=== PATIENT | female | born 1940 | race Caucasian/White ===

== ENCOUNTER → 2017-04-02 | Outpatient (CLI) | payer OTHER, MEDICARE, SELFPAY ==
[~2017-04-02] MED LIST: ASA81BEC; ASPIRIN EC325 M1 PO; ATIVAN0.5 MG PO; ATIVAN2 MG PO; BACTRIM DS TAB1 EACH PO; CALCIUM 500 +1 EAC5 PO; CALCIUM 600 +1 EAC1 PO; CIPROFLOXACIN500 M1 PO; COREG25 MG PO; CRESTOR20 MG PO; CYCLOBENZAPRINE5 MG PO; CYMBALTA30 MG PO; CYMBALTA60 MG PO; ESTRACE1 MG PO; FISHOIL; FOLIC ACID 40400 MC1 PO; FUROSEMIDE 20 M20 M1 PO; HYDROCODONE-AP1 EAC6 PO; LEVOTHYROXINE0.05 MG PO; LEVOTHYROXINE0.2 M1; LIPITOR20 MG PO; LISINOPRIL20 MG PO; LOSARTAN POTASS50 MG PO; LUNESTA1 MG PO; MELOXICAM7.5 MG PO; MULTIVITAMINS; NORCO 10-325 T1 EACH PO; OSTEO BI-FLEX1 EAC1 PO; PERCOCET 5-3251 EACH PO; TRAMADOL 50 MG50 MG PO; VITAMIN B-650 M1 PO
== END ==
LOC: MRI 10:25
DX: M76.821 Posterior tibial tendinitis, right leg (principal); M65.861 Other synovitis and tenosynovitis, right lower leg

== ENCOUNTER → 2018-08-14 | Outpatient (CLI) | payer OTHER, MEDICARE | LOC: NUC 10:51 | DX: T84.84XA Pain due to internal orthopedic prosthetic devices, implants and grafts, initial encounter (principal); M25.561 Pain in right knee; M25.562 Pain in left knee; Z90.5 Acquired absence of kidney ==

== ENCOUNTER 2018-10-29 05:26 | Inpatient (IN) | payer OTHER, MEDICARE ==
[2018-10-09 13:15] LABS: HEMATOCRIT 40.6 % (37.0-47.0); HEMOGLOBIN 13.6 gm/dL (12.0-15.0); MCH 29.1 pg (26.0-34.0); MCHC 33.7 g/dL (28.0-37.0); MCV 86.6 fL (80.0-100.0); RBC 4.68 mil/uL (4.20-5.00); RDW 14.2 % (10.5-14.5); WBC 7.9 thou/uL (4.0-11.0)
[2018-10-09 13:24] LABS: ALBUMIN 4.2 g/dL (3.4-5.0); CREATININE 1.1 mg/dL (0.6-1.0); POTASSIUM 4.3 mmol/L (3.5-5.1)
[2018-10-09 13:27] LABS: PROTIME 9.8 Seconds (9.3-11.4)
[2018-10-09 13:57] LABS: URINE BILIRUBIN NEGATIVE (Negative); URINE BLOOD NEGATIVE (Negative); URINE CLARITY CLOUDY; URINE COLOR YELLOW; URINE GLUCOSE-RANDOM* NEGATIVE (Negative); URINE KETONES NEGATIVE (Negative); URINE LEUKOCYTES-REFLEX TRACE (Negative); URINE PROTEIN (DIPSTICK) NEGATIVE (Negative); URINE SPECIFIC GRAVITY <= 1.005 (1.005-1.035); URINE UROBILINOGEN 0.2 E.U./dl (0.2-1.0)
[2018-10-09 13:58] LABS: URINE NITRITE-REFLEX POSITIVE (Negative)
[2018-10-09 14:06] LABS: URINE RBC 0-2 Rare /HPF (0-2)
[2018-10-09 14:07] LABS: AMORPHOUS URATES Moderate /LPF (None Seen); CASTS None Seen /LPF (None Seen); SQUAMOUS None Seen /LPF (0-3); URINE WBC-REFLEX 0-5 Rare /HPF (0-5)
--- NOTE | 2018-10-10 07:24 | EKG ---
[address] [place] [address] ELECTROCARDIOGRAM REPORT Name: SAADJORGITO A Room #: PRE IN [facility]#: [id number] ������������������ Admission: ������������������ Attend Phys: Emile Barrientos MD Discharge: ������������������ Date of : 36 Report #: [id number] ����������������������������������������������������������������� [id number] THIS REPORT FOR: //name// [facility] Test Date: 2018-10-09 Test Time: 13:07:00 Pat Name: JORGITO NASH Department: Room: Gender: F Production Sorter: Amarilys REGALADO : 1940 Requested By: Emile Barrientos Order Number: [id number] MD: Kenneth Christy Measurements Intervals Guild Rate: 72 P: -8 IL: 198 QRS: -41 QRSD: 97 T: 59 QT: 401 QTc: 439 Interpretive Statements Sinus rhythm Left axis deviation Compared to ECG 05/18/2016 06:42:59 No significant changes Electronically Signed On 10-10-2018 7:24:38 CDT by Kenneth Christy [email or web address] ��������������������������������������������� <ELECTRONICALLY SIGNED> ���������������������������������������� By: Kenneth Christy MD, [facility] ��������������������������������������������� 10/10/18 0724 1307 1307 Kenneth Christy MD, FACC /EPI
[~2018-10-29] VITALS: Ht 157.5 cm; Wt 81.6 kg
[2018-10-29] VITALS (7 sets, daily range): BP systolic 91–135; BP diastolic 43–60
--- NOTE | ~2018-10-29 | O ---
[facility] [place] [address] OPERATIVE REPORT Name: JORGITO NASH Room #: 458-P [facility] IN M.R.#: [id number] Admission: 10/29/18 ������������������ Attend Phys: Emile Barrientos MD Discharge: ������������������ Date of : 38 Report #: [id number] THIS REPORT FOR: //name// CC: Cherry Barrientos DATE OF SERVICE: 10/29/2018 PREOPERATIVE DIAGNOSIS: Aseptic loosening, left total knee arthroplasty. POSTOPERATIVE DIAGNOSIS: Aseptic loosening, left total knee arthroplasty. PROCEDURE: Revision left total knee arthroplasty, all components. SURGEON: Emile Barrientos MD DOOR SERVICEMAN: Dianne Christine PA-C INDICATION FOR DOOR SERVICEMAN: Throughout the case, extensive retraction and manipulation of the knee was required. This was afforded to me by my commercial lines assistant. ANESTHESIA: LMA with an adductor canal block. IMPLANTS: Acosta [employer] Nephew size 4 left Oxinium Legion revision femoral component with a 13 x 160 stem and a 2-mm offset jitney driver, a size 2 tibia with a 13 x 160 mm stem and a 4-mm offset jitney driver, a size 18 standard constrained polyethylene with a 32-mm patella. TOURNIQUET TIME: 84 minutes. ESTIMATED BLOOD LOSS: 25 mL. COMPLICATIONS: None. SPECIMENS: Intraoperative frozen section was performed and found to have no neutrophils per high-power field. In addition, intraoperative cultures were taken. CONDITION UPON LEAVING THE OPERATING ROOM: Stable. INDICATIONS FOR PROCEDURE: The patient is an 78-year-old female who is several years out from a left total knee arthroplasty. She has had continued pain in this knee and symptoms consistent with aseptic loosening. Preoperative evaluation for infection was negative. A bone scan was equivocal and given her clinical history, there was suspicion for aseptic loosening. After discussion with her regarding treatment options, she elected for revision total knee [address] [address] OPERATIVE REPORT Name: JORGITO NASH Room #: 458-P [facility] IN [facility].#: [id number] Admission: 10/29/18 ������������������ Attend Phys: Emile Barrientos MD Discharge: ������������������ Date of : 38 Report #: [id number] arthroplasty. DESCRIPTION OF PROCEDURE: Risks, benefits, alternatives, complications were discussed in detail with the patient including but not limited to risk of anesthesia, risk of damage to nerves, arteries, blood vessels, risk for infection, bleeding, risk for continued knee pain and need for reoperation. Informed consent was obtained from the patient. Left knee was appropriately marked in the preoperative holding area. IV Ancef was given for preoperative antibiotics. She was brought to the operating room and placed in the supine position on operating room table. LMA anesthesia was induced without complication. Tourniquet was placed on the left thigh. Left lower extremity was prepped and draped in normal sterile fashion. Time-out was performed properly identifying the patient and procedure as well as the instrumentation and implants. All in the operating room were in agreement. Left lower extremity was exsanguinated. Tourniquet was inflated. Tourniquet time was 84 minutes. The previous scar was then opened with a 10-blade through the skin. Dissection was taken down sharply to the fascia, and deep flaps were developed medially and laterally. Fresh 10-blade was used to make a medial parapatellar arthrotomy, and the knee was inspected. There was normal-appearing joint fluid. Cultures of this were taken. Several samples of synovium were then resected and sent to pathology for intraoperative frozen section, which revealed no neutrophils per high-power field. After this, medial and lateral gutters were re-established. The polyethylene was removed. The knee was flexed. The patella was subluxed laterally, and the femoral component was easily removed with osteotomes. It did appear to be loose from the femur itself. Attention was turned on the tibia. Tibial component was also easily removed with minimal bonding of the cement to the component. After this, the canals were sequentially reamed up to a size 13, which revealed good fit with the 13 reamer. The tibia cleanup cut was made with an oscillating saw and the tibia was sized, found to be a size 2. This was best with the 4-mm offset jitney driver. Tibial trial was placed and punched. The femur was then sized, found to be a size 4. This was best with a 2-mm offset jitney driver, and chamfer cuts were then made. Trial femoral component was placed. A box cut was made and then this was trialed with a size 15 and then a size 18. A standard high flex trial poly found to have good balance in flexion and extension both medially and laterally. The previous patellar button was then removed, and a 32 patellar trial was placed. Knee was taken through range of motion, found to be stable, found to have good balance in flexion and extension with good patellar tracking. Trial components were removed. Bone ends were thoroughly irrigated with normal saline. Final size 2 tibia with a 4-mm offset jitney driver and a 13 x [address] in place. A size 4 Legion Oxinium constrained femoral component with a 2-mm offset jitney driver and a 13 x 160 stem was cemented and a 32 patella was cemented in place. While the cement cured, a periarticular injection consisting of morphine, ropivacaine, epinephrine and Toradol was placed around the knee joint capsule. After the cement cured, the tourniquet was deflated. Hemostasis was obtained with Bovie cautery. A final size 18 polyethylene was placed. A gram of vancomycin was [facility] [address] [place] [address] OPERATIVE REPORT Name: JORGITO NASH Room #: 458-P ADM IN M.R.#: [id number] Admission: 10/29/18 ������������������ Attend Phys: Emile Barrientos MD Discharge: ������������������ Date of : 38 Report #: [id number] placed deep in the joint. The fascia was closed with 0 Vicryl, skin was closed with 2-0 Vicryl, 3-0 Monocryl. Dermabond and a FELECIA dressing were applied. The patient tolerated this procedure well and went to recovery room under care of anesthesia postoperatively. ��������������������������������������������� ���������������������������������������� By: ��������������������������������������������� 1223 1339 Emile Barrientos MD /nt
[~2018-10-29 05:26] MED LIST changes: +AMLODIPINE BESY10 MG PO; +CALCIUM CITRAT200 MG PO; +FOLIC ACID1 MG PO; +LASIX 20 MG TAB20 MG PO; +LORAZEPAM 2MG TA2 M1 PO; +SYNTHROID50 MCG PO; +VITAMIN B-625 MG PO
--- NOTE | 2018-10-29 17:50 | NUR ---
XFER PT CAME IN FROM SURGERY. PT POST OP VSS, PT ORIENTED TO ROOM.
--- NOTE | 2018-10-30 04:37 | NUR ---
Pt. rested quietly at intervals during the night when checked on during frequent rounds. She has been given pain meds (see emar) for c/o pain to her right knee with some relief of pain noted. El dressing to the right knee is dry and intact. Assisted up to the bathroom with walker and gait belt and pt. did well. Bed alarm is on.
[2018-10-30 05:21] VITALS: BP 115/43
[2018-10-30 05:59] LABS: HEMATOCRIT 32.2 % (37.0-47.0); HEMOGLOBIN 10.6 gm/dL (12.0-15.0); MCH 28.9 pg (26.0-34.0); MCHC 32.9 g/dL (28.0-37.0); MCV 87.8 fL (80.0-100.0); RBC 3.67 mil/uL (4.20-5.00); RDW 14.2 % (10.5-14.5); WBC 14.2 thou/uL (4.0-11.0)
[2018-10-30 07:16] VITALS: BP 101/49
--- NOTE | 2018-10-30 13:45 | NUR ---
TOWARDS POC PT VSS, AFEBRILE, PAIN MANAGED BY MEDS. PT/OT WORK WITH THE PT. PT ABLE TO USE TOILET WITH MINIMAL ASSISTANCE WITH WALKER/GB. WILL CONTINUE TO MONITOR.
--- NOTE | 2018-10-30 14:43 | PATH ---
[facility] [address] [place] [address] PATHOLOGY RPT PROCEDURE Name: JORGITO NASH Room #: 458-P ADM IN M.R.#: [id number] ������������������ Admission: 10/29/18 ������������������ Date of : 38 Discharge: Report #: [id number] Path Case #: [id number] LCA Accession Number: [id number] . 01 Material submitted: . knee - LEFT KNEE SYNOVIAL TISSUE FS. Modifiers: left . 02 Frozen section diagnosis: . FROZEN SECTION DIAGNOSIS (Dr. Ivania Barajas) . FSA1. Synovium, left knee synovial tissue, biopsy: - No increase in neutrophils per high-power field. . These findings are discussed with Dr. Emile Barrientos in OR-5 at [facility] and a written report is placed in the patient's chart. . Frozen section performed at [facility], [address] [place] [address]. . GROSS DESCRIPTION Specimen is received fresh from the OR labeled with the patient's name, and "left knee synovial tissue", consists of white to red-trejo firm fragments of tissue measuring an aggregate of approximately 3.5 x 3.5 x 3 cm. The grossly evident synovial lining is shaved and submitted for frozen section as FSA1, this is subsequently submitted for permanent section as A1. The unfrozen tissue is submitted for permanent section only as A2. (IUV:business mgr; 10/29/2018) IZV/QTP . 02 Diagnosis: Synovium, left knee synovial tissue, biopsy: - Chronic inflammation, and macrophages, compatible with reactive changes. - Reactive synovial hyperplasia. - No increase in neutrophils or acute inflammation. (IUV:efren; 10/30/2018) QMS/10/30/2018 . 02 Electronically signed: . Ivania Barajas MD, Pathologist NPI- [id number] . 01 Gross description: . Please see gross description dictated by the pathologist located under the Frozen Section portion of this report. /TOB [address] [address] PATHOLOGY RPT PROCEDURE Name: JORGITO NASH Room #: 458-P [facility] IN .R.#: [id number] ������������������ Admission: 10/29/18 ������������������ Date of : 38 Discharge: Report #: [id number] Path Case #: [id number] . 02 Pathologist provided ICD-10: M65.9 . 02 CPT . [id number], [id number] Specimen Comment: A courtesy copy of this report has been sent to Specimen Comment: [phone]. Specimen Comment: Report sent to Performed at: [address], [place], [place] [id number] MD Lj Leahy MD Phone: [phone] Performed at: [address] [id number] MD Ivania Barajas MD Phone: [phone]
--- NOTE | 2018-10-30 14:49 | NUR ---
DISCHARGE PLANNING. ANTICIPATED DISCHARGE IS PLANNED FOR SATURDAY. POST ACUTE RECOMMENDED AT DISCHARGE. REFERRAL FAXED TO [facility] FOR POST ACUTE NEEDS PER PATIENT REQUEST. CALL PLACED TO JOSIE, [facility] TO NOTIFY. JOSIE TO REVIEW AND NOTIFY CM. UNIT SW AWARE. FOLLOWING.
[2018-10-30 15:49] VITALS: BP 110/46
--- NOTE | 2018-10-30 17:08 | NUR ---
PT ADMITTED RELATED TO LEFT TOTAL KNEE REVISION. CM REVIEWED CHART AND SPOKE WITH CARE TEAM. CM MET WITH PT AT BEDSIDE THIS DAY. PT IS A&O X4. CM ROLE INTRODUCED. PT INDICATED SHE LIVES ALONE IN AN APARTMENT WITH 8 STEPS TO ENTER AND NO STEPS INSIDE. PT INDICATED SHE HAD USED A CANE TO ASSIST WITH MOBILITY COMMERCIAL CONSTRUCTION ESTIMATOR. PT INDICATED SHE WANTS TO GO TO [facility]. REFERRAL SENT TO [facility] AND THEY ARE AWARE AND ANTICIPATING HER ADMITTING ON SATURDAY. CM TO FOLLOW INDICATED WITH DC PLANNING.
[2018-10-30 20:07] VITALS: BP 116/40
[2018-10-31] VITALS: BP 120/80
--- NOTE | 2018-10-31 01:23 | NUR ---
ASSESSMENT: PT REMAIN ALERT AND ORIENT TIMES FOUR. UP TO BR WITH SBA. C/O GENERALIZED PAIN, AND LEFT KNEE PAIN. DENIES SOB AND NAUSEA. VSS, AFEBRILE. PECO DRESSING C/D/I. NEURO CHECKS EVERY FOUR HOURS DOCUMENTED. PRN PAIN MEDS PROVIDE ADEQUATE RELIEF PER PT. SLOW PROGRESS, WILL CONTINUE TO MONITOR.
[2018-10-31 04:00] VITALS: BP 118/70
[2018-10-31 05:22] LABS: HEMATOCRIT 28.8 % (37.0-47.0); HEMOGLOBIN 9.8 gm/dL (12.0-15.0); MCHC 34.1 g/dL (28.0-37.0); MCV 87.9 fL (80.0-100.0); RBC 3.28 mil/uL (4.20-5.00); RDW 14.4 % (10.5-14.5); WBC 9.4 thou/uL (4.0-11.0)
[2018-10-31 08:00] VITALS: BP 122/56
[2018-10-31] MEDS ORDERED: NEURONTIN 300300 M1 PO (12:13)
[2018-10-31] MEDS ORDERED: ASPIR 8181 MG PO (12:13)
[2018-10-31 15:00] VITALS: BP 109/60
--- NOTE | 2018-10-31 16:20 | NUR ---
CARE TEAM INDICATED THAT PT IS MEDICALLY STABLE TO DC [facility] [place] Saturday11/01/18. WHEELCHAIR VAN TRAS[facility] SET FOR 1400. CHART COPY ORDERED. ORDERS TO BE FAXED TO . REPORT TO BE CALLED TO . PT IS AWARE AND AGREEABLE. CM NOTIFIED PT'S DTR. NO OTHER CM INTERVENTION INDICATED. CASE CLOSED.
[2018-10-31 18:56] VITALS: BP 113/42
--- NOTE | 2018-10-31 20:25 | NUR ---
Reeived awake on bed. Due medications given as prescribed, able to swallow meds w/o difficulty. A+Ox4. On room air. FELECIA dressing at L Knee C/D/I, no signs of infection, SCD and TEDs on. Pt ASA'CARSARMIUT- with hearing aid on. Visited by relatives today. PT up with walker and stanby assist going to the toilet. Complained she hasn't opened her bowels yet, due laxative given as prescribed. Pt complained of pain, PRN pain meds given as prescribed, on ice packs on surgical wound as well. Pt with SL at L FA, patent and flushing well. Pt seen by Ortho today, pending discharge once SNF and transport is set up- CM informed and aware. CM set up transport at 1400 tomorrow to SNF- pt informed. Seen by PT today had 2x session, tolerated well with minimal pain noted. Vital signs stable.
[2018-11-01 03:38] VITALS: BP 126/57
--- NOTE | 2018-11-01 04:32 | NUR ---
ASSUMED CARE OF PT AT 1900HRS. PT IS AOX4 AND LETS NEEDS BE KNOWN. PT IS DOING WELL POST OP AND FEELS COMFORTABLE WITH A WALKER. PT REPORTED SOME PAIN AND WAS TREATED. PT WAS ABLE TO GET COMFORTABLE AND SLEEP PART OF THE SHIFT. NO S/S OF ACUTE DISTRESS. WILL CONTINUE TO MONITOR.
[2018-11-01 05:05] LABS: HEMATOCRIT 30.2 % (37.0-47.0); HEMOGLOBIN 9.9 gm/dL (12.0-15.0); MCH 29.8 pg (26.0-34.0); MCHC 32.9 g/dL (28.0-37.0); MCV 90.4 fL (80.0-100.0); RBC 3.34 mil/uL (4.20-5.00); RDW 14.8 % (10.5-14.5); WBC 8.6 thou/uL (4.0-11.0)
[2018-11-01 07:15] VITALS: BP 129/57
[2018-11-01 10:01] VITALS: BP 129/57
--- NOTE | 2018-11-01 11:51 | NUR ---
Received awake on bed. Due medications given as prescribed- able to swallow tablets w/o difficulty. A+Ox4. On room air. With SL at L FA. Pt complained of pain after therapy, due PRN pain meds given as prescribed. With FELECIA dressing on L knee C/D/I. Pt able to ambulate using walker and gait belt. For transfer to SNF today, CM coordinated transport and to facility, pt will be fetched at 1400, discharge summary faxed, to call in report to [facility]; Pt informed and aware. Reviewed pt's labs, noted drop in Platelets from [phone] Called in Dr Barrientos's office to report re: drop in platelets, a/w call back. Called twice to answering service, still no call back. Vital signs stable, no active bleeding noted.
== END 2018-11-01 14:38 | DRG 468 ==
LOC: 4W 05:26 → TBA 05:26 → PRE 05:45 → 4W 17:27 → PRE 18:19 → 4W 11-01 14:38
PROVIDERS: ADMIT Orthopaedic Surgery
PROC: 0SPD0JZ Removal of Synthetic Substitute from Left Knee Joint, Open Approach (ICD-10-PCS; principal; 2018-10-29)
PROC: 0SRD0J9 Replacement of Left Knee Joint with Synthetic Substitute, Cemented, Open Approach (ICD-10-PCS; principal; 2018-10-29)
DX: T84.033A Mechanical loosening of internal left knee prosthetic joint, initial encounter (principal); K59.00 Constipation, unspecified; Z79.899 Other long term (current) drug therapy; Y83.1 Surgical operation with implant of artificial internal device as the cause of abnormal reaction of the patient, or of later complication, without mention of misadventure at the time of the procedure; Y92.89 Other specified places as the place of occurrence of the external cause
CPT/HCPCS: 10047; 50010; 50101; 50415; 50954; 51130; 51225; 53000; 53078; 54118; 55389; 56527; 56528; 57095; 57103; 57110; 57180; 62110; 62900; 64039; 70005

== ENCOUNTER 2018-11-13 00:44 | Observation (INO) | payer OTHER, MEDICARE ==
[~2018-11-13] VITALS: Ht 157.5 cm; Wt 83.0 kg
[2018-11-13] VITALS (7 sets, daily range): BP systolic 114–154; BP diastolic 47–69
[~2018-11-13 00:44] MED LIST changes: +ASPIR 8181 MG PO; +NEURONTIN 300300 M1 PO
[2018-11-13 01:30] LABS: ABSOLUTE NEUTROPHILS 8.1 thou/uL (1.4-8.2); BASOPHILS 1.4 % (0.0-2.0); HEMATOCRIT 31.3 % (37.0-47.0); HEMOGLOBIN 10.3 gm/dL (12.0-15.0); LYMPHOCYTES 18.8 % (24.0-44.0); MCHC 32.9 g/dL (28.0-37.0); MCV 88.1 fL (80.0-100.0); MONOCYTES 8.6 % (1.0-8.0); PLATELET COUNT 373 thou/uL (150-400); POLYS 66.2 % (36.0-66.0); RBC 3.56 mil/uL (4.20-5.00); RDW 14.4 % (10.5-14.5); WBC 12.3 thou/uL (4.0-11.0)
[2018-11-13 01:44] LABS: CALCIUM 9.6 mg/dL (8.5-10.1); CREATININE 1.3 mg/dL (0.6-1.0); POTASSIUM 3.8 mmol/L (3.5-5.1)
[2018-11-13] MEDS ORDERED: NORCO 10-325 T1 EACH PO (04:34)
[2018-11-13 12:35] LABS: URINE BILIRUBIN NEGATIVE (Negative); URINE BLOOD NEGATIVE (Negative); URINE CLARITY CLEAR; URINE COLOR YELLOW; URINE GLUCOSE-RANDOM* NEGATIVE (Negative); URINE KETONES NEGATIVE (Negative); URINE LEUKOCYTES-REFLEX TRACE (Negative); URINE NITRITE-REFLEX NEGATIVE (Negative); URINE PROTEIN (DIPSTICK) NEGATIVE (Negative); URINE SPECIFIC GRAVITY 1.015 (1.005-1.035); URINE UROBILINOGEN 0.2 E.U./dl (0.2-1.0)
[2018-11-14 04:23] VITALS: BP 140/53
[2018-11-14 05:18] LABS: ABSOLUTE NEUTROPHILS 6.3 thou/uL (1.4-8.2); BASOPHILS 0.8 % (0.0-2.0); EOSINOPHILS 6.3 % (0.0-3.0); HEMOGLOBIN 9.6 gm/dL (12.0-15.0); LYMPHOCYTES 23.9 % (24.0-44.0); MCH 29.3 pg (26.0-34.0); MCV 88.7 fL (80.0-100.0); MONOCYTES 7.7 % (1.0-8.0); PLATELET COUNT 367 thou/uL (150-400); POLYS 61.3 % (36.0-66.0); RBC 3.27 mil/uL (4.20-5.00); RDW 14.6 % (10.5-14.5); WBC 10.3 thou/uL (4.0-11.0)
[2018-11-14 05:28] LABS: CALCIUM 9.2 mg/dL (8.5-10.1); CREATININE 0.9 mg/dL (0.6-1.0); POTASSIUM 3.4 mmol/L (3.5-5.1)
[2018-11-14 08:00] VITALS: BP 139/55
[2018-11-14 12:44] VITALS: BP 140/53
[2018-11-14 13:45] VITALS: BP 140/53
[2018-11-14 14:38] VITALS: BP 140/53
--- NOTE | 2018-11-15 08:25 | HC ---
[facility] [place] [address] CONSULTATION Name: JORGITO NASH Room #: 459-P [facility] M.Jarad#: [id number] Admission: 11/13/18 Attend Phys: Suraj Patel MD Discharge: 11/14/18 Date of : 38 Report #: [id number] THIS REPORT FOR: //name// CC: Suraj Barrientos DATE OF SERVICE: 11/13/2018 REASON FOR CONSULTATION: Status post revision left total knee arthroplasty with concern for infection. HISTORY OF PRESENT ILLNESS: The patient is 2 weeks out from a revision left total knee arthroplasty secondary to aseptic loosening. She presented to the Emergency Room last time with increasing pain and heat in her knee. She did not know what else to do and so she went to the Emergency Room for evaluation and she was then admitted for definitive treatment. She states that her pain has gotten worse in the past day or so, and she was concerned for swelling and redness in her knee. She has had no fevers. [facility] She is yet to follow up with us in the office. CURRENT MEDICATIONS AND LABORATORY DATA: Have been reviewed and on the chart. PHYSICAL EXAMINATION: GENERAL: Well-developed female in no acute distress. She is alert and oriented, pleasant, cooperative with exam. EXTREMITIES: Examination of the left knee shows a well-healed incision without any drainage or signs of infection. She has minimal erythema ____ incision that could be secondary to her dressing. She has a trace effusion, which is expected at this point. There is mild warmth to the knee, which should also be expected at this point. She has minimal edema in her foot and ankle. Her range of motion is from 10 to 90 degrees possibly. X-ray examination two view of the left knee shows revision total knee arthroplasty in stable position without signs of infection or gas in the joint. LABORATORY VALUES: Show her to have a white count of 12.3. CRP of 95. ASSESSMENT: Two weeks status post revision left total knee arthroplasty. PLAN: ____. She has a well-healed incision with minimal erythema. The erythema is expected after a joint replacement as well as heat around the joint. She has good range of motion ____ in 2 weeks. She appears normal. I see no signs and need for antibiotics at this point and no need for return to the operating room at this point either. I would expect her white count and sed rate and ____ CRP to be elevated secondary to the [place] [address] CONSULTATION Name: JORGITO NASH [id number] Admission: 11/13/18 Attend Phys: Suraj Patel MD Discharge: 11/14/18 Date of : 38 Report #: [id number] revision knee arthroplasty. We will consult PT for evaluation and treatment and for them to make further recommendations as far as placement is concerned for her. She can follow up with me in 1 week for repeat evaluation of her knee. Thank you for consulting us. <ELECTRONICALLY SIGNED> By: Emile Barrientos MD 11/15/18 0825 1425 0257 Emile Barrientos MD /nt
== END 2018-11-14 16:00 | disposition home health service (06) ==
LOC: ER 00:44 → 4W 02:40 → EROBS 02:40 → 4W 02:40 → ENTRNSPT 11-14 14:42 → EDTRNSPTSTS 11-14 14:44 → 4W 11-14 16:00
PROVIDERS: Emergency Medicine; Nurse Practitioner Family; ADMIT Hospitalist
DX: T84.032A Mechanical loosening of internal right knee prosthetic joint, initial encounter (principal); M25.562 Pain in left knee; G89.18 Other acute postprocedural pain; I10 Essential (primary) hypertension; F41.9 Anxiety disorder, unspecified; K21.9 Gastro-esophageal reflux disease without esophagitis; E03.9 Hypothyroidism, unspecified; R51 Headache; R07.89 Other chest pain; I47.1 Supraventricular tachycardia; D72.829 Elevated white blood cell count, unspecified; R79.82 Elevated C-reactive protein (CRP); Z79.82 Long term (current) use of aspirin; Z79.899 Other long term (current) drug therapy; Z96.653 Presence of artificial knee joint, bilateral
CPT/HCPCS: 10040

== ENCOUNTER 2019-03-11 15:56 | Emergency (ER) | payer OTHER, MEDICARE ==
[~2019-03-11] VITALS: Ht 157.5 cm; Wt 72.6 kg
[2019-03-11 17:41] LABS: ABSOLUTE NEUTROPHILS 8.8 thou/uL (1.4-8.2); EOSINOPHILS 1.7 % (0.0-3.0); HEMATOCRIT 39.9 % (37.0-47.0); HEMOGLOBIN 12.9 gm/dL (12.0-15.0); LYMPHOCYTES 17.5 % (24.0-44.0); MCH 28.1 pg (26.0-34.0); MCHC 32.4 g/dL (28.0-37.0); MCV 86.8 fL (80.0-100.0); MONOCYTES 10.4 % (1.0-8.0); PLATELET COUNT 334 thou/uL (150-400); POLYS 69.4 % (36.0-66.0); RDW 15.3 % (10.5-14.5); WBC 12.7 thou/uL (4.0-11.0)
[2019-03-11 17:52] LABS: CALCIUM 9.7 mg/dL (8.5-10.1); CREATININE 0.9 mg/dL (0.6-1.0); POTASSIUM 4.2 mmol/L (3.5-5.1)
[2019-03-11 17:54] LABS: PROTIME 9.9 Seconds (9.3-11.4)
[2019-03-11 17:55] LABS: ALBUMIN 3.7 g/dL (3.4-5.0); TOTAL BILIRUBIN 0.3 mg/dL (<0.1-1.0); TOTAL PROTEIN 7.5 g/dL (6.4-8.2)
[2019-03-11] MEDS ORDERED: NORCO 5-325 TA1 EAC1 PO (18:42)
[2019-03-11 18:45] VITALS: BP 158/78
== END 2019-03-11 18:56 | disposition home or self-care (01) ==
LOC: ER 15:56
PROVIDERS: Physician Assistant
DX: R51 Headache (principal); I10 Essential (primary) hypertension; K21.9 Gastro-esophageal reflux disease without esophagitis; F41.9 Anxiety disorder, unspecified; Z96.653 Presence of artificial knee joint, bilateral; Z85.42 Personal history of malignant neoplasm of other parts of uterus; Z85.528 Personal history of other malignant neoplasm of kidney; Z90.49 Acquired absence of other specified parts of digestive tract; Z90.710 Acquired absence of both cervix and uterus; Z90.13 Acquired absence of bilateral breasts and nipples; Z90.5 Acquired absence of kidney; Z88.8 Allergy status to other drugs, medicaments and biological substances

== ENCOUNTER → 2020-12-23 | Outpatient (CLI) | payer OTHER ==
[~2020-12-23] MED LIST changes: +NORCO 5-325 TA1 EAC1 PO
== END ==
LOC: SJCVCIMAG 10:45 → SJCVC 10:45
PROVIDERS: ATTEND Internal Medicine Cardiovascular Disease
DX: R94.31 Abnormal electrocardiogram [ECG] [EKG] (principal); I44.4 Left anterior fascicular block; R00.0 Tachycardia, unspecified; R07.89 Other chest pain; I10 Essential (primary) hypertension; E78.00 Pure hypercholesterolemia, unspecified; R06.00 Dyspnea, unspecified; F41.9 Anxiety disorder, unspecified; G89.29 Other chronic pain; M54.9 Dorsalgia, unspecified; F32.9 Major depressive disorder, single episode, unspecified; M17.2 Bilateral post-traumatic osteoarthritis of knee; Z79.899 Other long term (current) drug therapy; Z85.3 Personal history of malignant neoplasm of breast; Z85.42 Personal history of malignant neoplasm of other parts of uterus; Z72.89 Other problems related to lifestyle; Z88.8 Allergy status to other drugs, medicaments and biological substances; Z82.49 Family history of ischemic heart disease and other diseases of the circulatory system

== ENCOUNTER 2021-02-03 19:29 | Inpatient (IN) | payer OTHER ==
[~2021-02-03] VITALS: Ht 157.5 cm; Wt 81.6 kg
--- NOTE | ~2021-02-03 | EMS ---
[facility] [address] [place] [address] EMS Patient Care Report Name: SHAYAN NASH Room #: REG [facility].RJarad#: [id number] Admission: 02/03/21 Attend Phys: Discharge: Date of : 38 Report #: [id number] THIS REPORT FOR: //name// Report Transmitted: 02/03/2021 21:05 EMS Care Summary [place], [place]/[facility] Incident [id number] @ 02/03/2021 18:46 Incident Location [address] [place] [address] Patient JORGITO NASH Female, 80 Years 1940 Patient Address [address] [place] [address] Patient History Hypertension (HTN),Breast Cancer,Kidney Cancer, Chief Complaint N/V Disposition Transported No Lights/[place] Reason Abdominal Pain/Problems Transported To [facility] Narrative pt found lying in bed, a&o. she c/o N/V and general abd pain for past 2 days. she has not eaten today b/c of the vomiting. she is req eval at [facility]. pt to stairchair and out to unit. VS. unable to find suitable IV sight. transport ER w/o change. report to nurse rm 3. Initial Vitals [address] [address] EMS Patient Care Report Name: SHAYAN NASH Room #: REG [facility]#: [id number] Admission: 02/03/21 Attend Phys: Discharge: Date of : 38 Report #: [id number] @19:16P: 67,R: 20,BP: 148/76,Pain: 6/10,GCS: 15,SpO2: 96,Revised Trauma: 12, Assessments @19:05MENTAL:No Abnormalities,SKIN:No Abnormalities,HEENT:Head/Face: No Abnormalities,LUNG SOUNDS:General: Nausea,General: Other,General: Vomiting,ABDOMEN:General: Nausea,General: Other,General: Vomiting,PELVIS//GI:EXTREMITIES:PULSE:NEURO:No Abnormalities, Impression Abdominal Pain Procedures @19:05 ALS Assessment Response: Unchanged @19:07 Stairchair Response: Unchanged @19:10 Stretcher Response: Unchanged @19:12 3-Lead ECG Response: Unchanged Timeline 18:44,Call Received 18:44,Dispatch Notified 18:46,Dispatched 18:47,En Route 19:04,On Scene 19:05,At Patient 19:05,ALS Assessment,Response: Unchanged 19:07,Stairchair,Response: Unchanged 19:10,Stretcher,Response: Unchanged 19:12,3-Lead ECG,Response: Unchanged 19:16,BP: 148/76 M,PULSE: 67,RR: 20 R,SPO2: 96 Ox,ETCO2: ,BG: ,PAIN: 6,GCS: 15, 19:18,Depart Scene 19:25,At Destination 19:38,Call Closed Disclaimer v1.1 Copyright 2020 [employer] This EMS Care Summary contains data elements from the applicable legal record (which may be displayed differently). It is designed to provide pertinent information for the following purposes: continuity of care, clinical quality, and state data reporting. The complete legal record is available to ED staff and administrators of the receiving hospital in [email or web address]'s Patient Tracker. All data is provided "as is."
[2021-02-03 19:42] VITALS: BP 165/78
[2021-02-03 19:56] LABS: ABSOLUTE NEUTROPHILS 11.2 thou/uL (1.4-8.2); BASOPHILS 0.3 % (0.0-2.0); EOSINOPHILS 2.1 % (0.0-3.0); HEMATOCRIT 41.9 % (37.0-47.0); LYMPHOCYTES 15.6 % (24.0-44.0); MCH 29.4 pg (26.0-34.0); MCHC 33.4 g/dL (28.0-37.0); MCV 88.2 fL (80.0-100.0); MONOCYTES 5.3 % (1.0-8.0); PLATELET COUNT 312 thou/uL (150-400); POLYS 76.7 % (36.0-66.0); RBC 4.75 mil/uL (4.20-5.00); RDW 13.8 % (10.5-14.5); WBC 14.7 thou/uL (4.0-11.0)
[2021-02-03 20:11] LABS: CALCIUM 9.2 mg/dL (8.5-10.1); CREATININE 1.1 mg/dL (0.6-1.0); POTASSIUM 3.6 mmol/L (3.5-5.1)
[2021-02-03 20:16] LABS: ALBUMIN 3.9 g/dL (3.4-5.0); TOTAL BILIRUBIN 0.6 mg/dL (0.2-1.0); TOTAL PROTEIN 7.5 g/dL (6.4-8.2)
[2021-02-03 23:43] VITALS: BP 142/81
[2021-02-04 00:23] VITALS: BP 146/71
[2021-02-04 00:54] VITALS: BP 157/66
[2021-02-04] MEDS ORDERED: BENICAR40 MG PO (03:01)
[2021-02-04] MEDS ORDERED: ROSUVASTATIN CA20 MG PO (03:02)
[2021-02-04 04:44] VITALS: BP 148/60
--- NOTE | 2021-02-04 05:13 | NUR ---
PT WAS ADMITTED TO THE UNIT FROM THE ER IN A STABLE CONDITION.ADMISSION HX,EDUCATION AND ASSESSMENT COMPLETED.PT HUSLIA,USES HEARING AID.PT VERY ANXIOUS AND UNABLE TO SLEEP AFTER ADMISSION WAS COMPLETED.STRUCTURAL DRAFTSMAN ON DUTY NOTIFIED,ORDER NOTED AND CARRIED OUT.PT CONT ON IV ABX AND IVF ORDERED.MED REC DONE IN THE ER BUT NOT CORRECT.STRUCTURAL DRAFTSMAN ON DUTY WANTS AM NURSE TO CALL FAMILY AND GET THECORRECT MED LIST THEN, RECONCILE HER MEDS.PT STATED THAT SHE HAS PROBLEM WITH HER SHORT TERM MEMORY.PT ABLE TO MAKE HER NEEDS KNOWN.CALL LIGHT WITHIN REACH.
[2021-02-04 05:58] LABS: HEMATOCRIT 36.6 % (37.0-47.0); MCH 28.9 pg (26.0-34.0); MCHC 32.2 g/dL (28.0-37.0); MCV 89.5 fL (80.0-100.0); RBC 4.1 mil/uL (4.20-5.00); RDW 13.9 % (10.5-14.5); WBC 11.2 thou/uL (4.0-11.0)
[2021-02-04 06:16] LABS: CALCIUM 8.2 mg/dL (8.5-10.1)
[2021-02-04 06:25] LABS: POTASSIUM 2.8 mmol/L (3.5-5.1)
[2021-02-04 06:27] LABS: HEMOGLOBIN 11.8 gm/dL (12.0-15.0)
[2021-02-04 07:27] VITALS: BP 145/60
[2021-02-04] MEDS ORDERED: NORVASC10 MG PO (12:00)
[2021-02-04] MEDS ORDERED: HYDROXYZINE HCL25 M2 PO (12:02)
[2021-02-04] MEDS ORDERED: COZAAR 25 MG TA25 M1 PO (12:03)
[2021-02-04] MEDS ORDERED: ARTHRITIS PAIN100 GM TOP (12:05)
[2021-02-04 12:34] LABS: URINE BILIRUBIN NEGATIVE (Negative); URINE BLOOD NEGATIVE (Negative); URINE CLARITY CLEAR; URINE COLOR YELLOW; URINE GLUCOSE-RANDOM* NEGATIVE (Negative); URINE KETONES NEGATIVE (Negative); URINE LEUKOCYTES-REFLEX NEGATIVE (Negative); URINE PROTEIN (DIPSTICK) NEGATIVE (Negative); URINE SPECIFIC GRAVITY <= 1.005 (1.005-1.035); URINE UROBILINOGEN 0.2 E.U./dl (0.2-1.0)
[2021-02-04 12:43] LABS: URINE NITRITE-REFLEX POSITIVE (Negative)
[2021-02-04 13:40] LABS: CASTS None Seen /LPF (None Seen); CRYSTALS None Seen /LPF (None Seen); SQUAMOUS 0-3 Few /LPF (0-3); URINE RBC 1-2 Rare /HPF (NONE SEEN); URINE WBC-REFLEX 0-5 Rare /HPF (0-5)
--- NOTE | 2021-02-04 15:05 | NUR ---
ASSUMED PT CARE THIS AM. PT IS ALERT & ORIENTED X4 BUT ANIAK AT TIMES. PT HAS IV SITE ON RAC RUNNING NS @80ML/HR. NOTED LOW POTASSIUM THIS AM AND INFORMED HOSPITALIST. REPLACED POTASSIUM THIS AM. PT IS ON ROOM AIR. PT C/O OF PAIN ON ABDOMEN AND GIVEN PAIN MEDICATION. NO C/O OF NAUSEA AND VOMITING. SENT UA CULTURE THIS AM. UPDATED MEDICATION REC THIS AM. PT DAUGHTER WAS AT THE BEDSIDE. WILL CONTINUE TO MONITOR PT. FOLLOW POC.
[2021-02-04 15:43] VITALS: BP 109/49
[2021-02-04 20:42] VITALS: BP 128/60
--- NOTE | 2021-02-05 01:30 | NUR ---
ASSUMED CARE OF PT AT 1900, BEDSIDE REPORT RECIEVED. IVELISSE ASSESSMENT COMPLETE. PT DENIES ANY NAUSEA OR VOMITING AT THIS TIME. C/O GENERALIZED ABDOMINAL DISCOMFORT/ CRAMPING. MEDS GIVEN ORDERED PER MAY. PAIN MEDS GIVEN INDICATED. NOTIFIED PT OF NEED TO COLLECT STOOL SAMPLE, SUPPLIES IN BATHROOM. REFILLED WATER. PROVIDED SPRITE. PT TOLERATED C NO EMESIS OR NAUSEA. IVF INFUSING PER MAY. LABS TO BE DRAWN IN AM. ALL NEEDS MET. HOURLY ROUNDING CONTINUING. CALL LIGHT IN REACH
[2021-02-05 03:00] VITALS: BP 132/52
[2021-02-05 05:53] LABS: ABSOLUTE NEUTROPHILS 3.8 thou/uL (1.4-8.2); BASOPHILS 1.3 % (0.0-2.0); EOSINOPHILS 6.8 % (0.0-3.0); HEMATOCRIT 34.9 % (37.0-47.0); HEMOGLOBIN 11.7 gm/dL (12.0-15.0); LYMPHOCYTES 29.6 % (24.0-44.0); MCH 29.9 pg (26.0-34.0); MCHC 33.6 g/dL (28.0-37.0); MONOCYTES 8.3 % (1.0-8.0); PLATELET COUNT 240 thou/uL (150-400); RBC 3.92 mil/uL (4.20-5.00); RDW 13.8 % (10.5-14.5)
[2021-02-05 06:28] LABS: CREATININE 0.9 mg/dL (0.6-1.0); MAGNESIUM 1.9 mg/dL (1.8-2.4); PHOSPHORUS 3.2 mg/dL (2.5-4.9); POTASSIUM 3.3 mmol/L (3.5-5.1); TOTAL BILIRUBIN 0.2 mg/dL (0.2-1.0); TOTAL PROTEIN 5.9 g/dL (6.4-8.2)
[2021-02-05 07:30] VITALS: BP 150/66
--- NOTE | 2021-02-05 12:41 | EKG ---
[address] [place] [address] ELECTROCARDIOGRAM REPORT Name: SHAYAN NASH Room #: 438-P ADM IN .R.#: [id number] Admission: 02/03/21 Attend Phys: Inocencio Starks MD Discharge: Date of : 38 Report #: [id number] [facility] Test Date: 2021-02-05 Test Time: 09:58:37 Pat Name: SHAYAN NASH Department: Room: [facility] Gender: F Enrober Tender: GRACY : 1940 Requested By: Maddie Tesfaye Order Number: [id number] MD: Kenneth Christy Measurements Intervals [place] Rate: 70 P: -25 AL: 200 QRS: -41 QRSD: 104 T: 107 QT: 425 QTc: 459 Interpretive Statements Sinus rhythm Leftward axis Abnormal R-wave progression, late transition Compared to ECG 10/09/2018 13:07:00 No significant change was found Electronically Signed On 02-05-2021 12:41:38 REPAIRER ENGINE PRODUCTION by Kenneth Christy [email or web address] <ELECTRONICALLY SIGNED> By: Kenneth Christy MD, [facility] 02/05/21 1241 [phone] Kenneth Christy MD, [facility] /EPI
--- NOTE | 2021-02-05 12:58 | NUR ---
ASSUMED PT CARE THIS AM. INFORMED HOSPITALIST THIS AM ABOUT PT C/O PAIN ON L CHEST BUT NOT RADIATING AND DENIES SOB. VS STABLE. DR ORDERED EKG AND TROPONIN. GIVEN ONE TIME ORDER IV PUSH MORPHINE PER DR ORDERED. SENT COVID SWAB THIS AM AND IT WAS NEGATIVE. IV TEAM CHANGED IV AND PT IS HARD STICK. PT HAS IV SITE ON LFA RUNNING NS @50ML/HR. PT IS UP WITH ASSIST X1 TO THE BATHROOM. PT DAUGHTER WAS AT THE BEDSIDE. WILL CONTINUE TO MONITOR PT. FOLLOW POC.
[2021-02-05 16:19] VITALS: BP 139/48
[2021-02-05 20:12] VITALS: BP 136/71
--- NOTE | 2021-02-06 03:12 | NUR ---
ASSUMED CARE OF PT AT 1900. BEDSIDE REPORT RECIEVED. IVELISSE ASSESSMENT COMPLETE. PT DENIES ANY NAUSEA OR EMESIS. C/O GENERALIZED ABDOMINAL PAIN. MEDS GIVEN PER MAR, PAIN MEDS GIVEN INDICATED. DENIES ANY CHEST PAIN AT THIS TIME. IVF INFUSING PER MAY. PT REPORTS ANXIETY D/T DAUGHTER HAVING SURGERY TOMORROW. THERAPUETIC COMMUNICATION PROVIDED. REFILLED ICE WATER. HOURLY ROUNDING CONTINUING. ALL NEEDS MET. CALL LIGHT IN REACH
[2021-02-06 08:02] LABS: ABSOLUTE NEUTROPHILS 6.7 thou/uL (1.4-8.2); BASOPHILS 0.5 % (0.0-2.0); EOSINOPHILS 5.5 % (0.0-3.0); HEMATOCRIT 36.2 % (37.0-47.0); HEMOGLOBIN 12.2 gm/dL (12.0-15.0); LYMPHOCYTES 17.2 % (24.0-44.0); MCH 29.7 pg (26.0-34.0); MCHC 33.8 g/dL (28.0-37.0); MCV 87.9 fL (80.0-100.0); MONOCYTES 7.9 % (1.0-8.0); PLATELET COUNT 272 thou/uL (150-400); POLYS 68.9 % (36.0-66.0); RBC 4.11 mil/uL (4.20-5.00); RDW 13.9 % (10.5-14.5); WBC 9.8 thou/uL (4.0-11.0)
[2021-02-06 08:17] VITALS: BP 146/84
[2021-02-06 08:31] LABS: CALCIUM 8.5 mg/dL (8.5-10.1); CREATININE 0.8 mg/dL (0.6-1.0); PHOSPHORUS 3.3 mg/dL (2.6-4.7); POTASSIUM 3.1 mmol/L (3.5-5.1)
--- NOTE | 2021-02-06 08:54 | NUR ---
On 02-03-21 an 80-year-old female with past medical history of hypertension, GERD, anxiety presented to the emergency room complaining of abdominal pain, nausea, and vomiting for the last 2 days. The patient has been admitted and being treated for Enteritis, Hypokalemia, and UTI. Attempted to see in AM of 02-06-21 and patient was in radiology for a KUB, noting ABD of CT shows terminal ileitis and believed infectious. Patient is listed at A&O x4 and notes that daughter Mary as her main contact at [phone] as well as daughter Cindy at [phone]. Patient is a patient of PCP Dr. Gr and cardiology of Dr. Boyd and pulmonology of Dr. Paulo Acosta. NOTED no PT/OT orders have been placed and attending MD has been notified to place the in the record to review for discharge needs. At LOS today attending proposed possible 1-2 days further of IV flids and ABT s with diet advancement and look to discharge thereafter.
[2021-02-06] MEDS ORDERED: PROTONIX 20 MG20 M1 PO (13:35)
[2021-02-06] MEDS ORDERED: CIPRO500 M1 PO (13:35)
[2021-02-06] MEDS ORDERED: KLOR-CON M2020 MEQ PO (13:35)
[2021-02-06] MEDS ORDERED: METRONIDAZOLE500 M4 PO (13:35)
[2021-02-06] MEDS ORDERED: ZOFRAN 4 MG ORAL4 MG PO (13:35)
[2021-02-06 17:09] VITALS: BP 140/87
[2021-02-06 18:10] VITALS: BP 147/50
--- NOTE | 2021-02-08 11:59 | NUR ---
Voice message from nathaly, needing help with her medications. Cm called her back, she requested a pill box, to many bottles now and need help with my medication to get them in big pill box per nathaly. Education that pankaj would talk with crystal katz to see if can assist with medication management. Crystal going to make visit tomorrow and will call and reach out to nathaly.
== END 2021-02-06 18:44 | disposition home health service (06) | DRG 392 ==
LOC: ER 19:29 → 4S 23:05 → EROBS 23:05 → 4S 02-04 00:29
PROVIDERS: Nurse Practitioner Family; ADMIT Internal Medicine; ATTEND Internal Medicine
DX: K52.9 Noninfective gastroenteritis and colitis, unspecified (principal); N39.0 Urinary tract infection, site not specified; E87.6 Hypokalemia; D64.9 Anemia, unspecified; K21.9 Gastro-esophageal reflux disease without esophagitis; I10 Essential (primary) hypertension; Z96.653 Presence of artificial knee joint, bilateral; D72.829 Elevated white blood cell count, unspecified; E78.5 Hyperlipidemia, unspecified; E03.9 Hypothyroidism, unspecified; E66.9 Obesity, unspecified; Z60.2 Problems related to living alone; Z20.822 Contact with and (suspected) exposure to COVID-19; F41.9 Anxiety disorder, unspecified; Z90.710 Acquired absence of both cervix and uterus; Z90.49 Acquired absence of other specified parts of digestive tract; Z68.33 Body mass index [BMI] 33.0-33.9, adult; Z85.54 Personal history of malignant neoplasm of ureter; Z88.8 Allergy status to other drugs, medicaments and biological substances; Z79.82 Long term (current) use of aspirin; Z79.899 Other long term (current) drug therapy; Z85.038 Personal history of other malignant neoplasm of large intestine; Z28.21 Immunization not carried out because of patient refusal
CPT/HCPCS: 10195

== ENCOUNTER → 2021-03-02 | Outpatient (CLI) | payer OTHER ==
[~2021-03-02] MED LIST changes: +ARTHRITIS PAIN100 GM TOP; +BENICAR40 MG PO; +CIPRO500 M1 PO; +COZAAR 25 MG TA25 M1 PO; +HYDROXYZINE HCL25 M2 PO; +KLOR-CON M2020 MEQ PO; +METRONIDAZOLE500 M4 PO; +NORVASC10 MG PO; +OLMESARTAN MEDO40 MG PO; +PROTONIX 20 MG20 M1 PO; +ROSUVASTATIN CA20 MG PO; +ZOFRAN 4 MG ORAL4 MG PO
== END ==
LOC: LAB 14:14
PROVIDERS: ATTEND Student in an Organized Health Care Education/Training Program
DX: Z01.812 Encounter for preprocedural laboratory examination (principal); Z20.822 Contact with and (suspected) exposure to COVID-19

== ENCOUNTER → 2021-03-06 | Outpatient (CLI) | payer OTHER ==
[~2021-03-06] VITALS: Ht 157.5 cm; Wt 77.1 kg
--- NOTE | 2021-03-07 14:07 | PATH ---
[facility] [address] [place] [address] PATHOLOGY RPT PROCEDURE Name: LOLAЕЛЕНАSHAYAN Soraya Room #: REG [facility].#: [id number] Admission: 03/06/21 Date of : 36 Discharge: Report #: [id number] Path Case #: [id number] [facility] Accession Number: [id number] . 01 Material submitted: . PART A: colon - ASCENDING COLON BX. Modifiers: ascending PART B: colon - DESCENDING COLON BX. Modifiers: descending . 01 Clinical history: . ABDOMINAL PAIN . 02 Diagnosis: A. Ascending colon, biopsy: - Colonic mucosa with adenomatous change, favor tubular adenoma. - Negative for high grade dysplasia or malignancy. . B. Descending colon, endoscopic biopsy: - Tubular adenoma. - Negative for high grade dysplasia or malignancy. . (ANK:sophie; 03/07/2021) QLM 03/07/2021 1116 Local . 02 Electronically signed: . Mary Carmen Harris MD, Pathologist NPI- [id number] . 01 Gross description: . A. The specimen is received in formalin, labeled "Shayan Alonzo, ascending colon". Received are 2 segments of pale trejo tissue measuring 0.3 and 0.5 cm in maximum dimensions. The specimen is entirely submitted in cassette A1. . B. The specimen is received in formalin, labeled "Shayan Alonzo, descending colon BX". Received are 2 segments of pale trejo tissue measuring 0.3 and 0.6 cm in maximum dimensions. The specimen is entirely submitted in cassette B1. ([facility]; 03/06/2021) NRI/NRI 03/06/2021 1731 Local . 02 Pathologist provided ICD-10: D12.4, R10.9 . 02 CPT . 469722, 324300 Specimen Comment: A courtesy copy of this report has been sent to [phone] [address] [address] PATHOLOGY RPT PROCEDURE Name: SHAYAN ALONZO Room #: REG [facility]#: [id number] Admission: 03/06/21 Date of : 36 Discharge: Report #: [id number] Path Case #: [id number] Specimen Comment: [id number] Specimen Comment: Report sent to / DR LUBIN Performed at: [address], [place], [place] [id number] MD Chip Bae MD Phone: [phone] Performed at: [address] [id number] MD Ivania Barajas MD Phone: [phone]
== END | disposition home or self-care (01) ==
LOC: GI 08:06
PROVIDERS: ATTEND Internal Medicine Gastroenterology
DX: R93.3 Abnormal findings on diagnostic imaging of other parts of digestive tract (principal); D12.2 Benign neoplasm of ascending colon; D12.3 Benign neoplasm of transverse colon; K57.30 Diverticulosis of large intestine without perforation or abscess without bleeding; K64.8 Other hemorrhoids; K21.9 Gastro-esophageal reflux disease without esophagitis; I10 Essential (primary) hypertension; I25.10 Atherosclerotic heart disease of native coronary artery without angina pectoris; E78.00 Pure hypercholesterolemia, unspecified; E03.9 Hypothyroidism, unspecified; Z85.3 Personal history of malignant neoplasm of breast; Z85.54 Personal history of malignant neoplasm of ureter; Z98.890 Other specified postprocedural states; Z79.899 Other long term (current) drug therapy; Z90.49 Acquired absence of other specified parts of digestive tract; Z90.710 Acquired absence of both cervix and uterus; Z96.653 Presence of artificial knee joint, bilateral
CPT/HCPCS: 62110; 62900